=== PATIENT | male | born 1985 | race Caucasian/White ===

== ENCOUNTER 2020-10-05 10:51 | Outpatient (REF) | payer OTHER, SELFPAY | END 2020-10-05 10:52 | disposition home or self-care (01) | LOC: HO.LAB 10:51 | PROVIDERS: PCP Internal Medicine; Visit Provider Internal Medicine | DX: Z20.828 Contact with and (suspected) exposure to other viral communicable diseases (principal) | CPT/HCPCS: C9803; U0003 ==

== ENCOUNTER 2021-03-03 08:42 | Outpatient (REF) | payer OTHER, SELFPAY ==
[2021-03-03 09:16] LABS: COVID-19 Test Negative (Negative)
== END 2021-03-03 08:43 | disposition home or self-care (01) ==
LOC: HO.LAB 08:42
PROVIDERS: Visit Provider Internal Medicine
DX: Z20.822 Contact with and (suspected) exposure to COVID-19 (principal)
CPT/HCPCS: 36415; 87635; C9803

== ENCOUNTER 2021-09-21 14:40 | Inpatient (IN) | payer MEDICAID, SELFPAY ==
[2021-09-21] VITALS (12 sets, daily range): BP systolic 97–116; BP diastolic 65–76; PULSE 52–90; RESP 13–18; TEMP 36.5–36.8; O2SAT 95–98; BMI 26.2
--- NOTE | 2021-09-21 | ECG_ITS ---
Test Reason : SYNCOPE Blood Pressure : / mmHG Vent. Rate : 059 BPM Atrial Rate : 059 BPM P-R Int : 164 ms QRS Dur : 084 ms QT Int : 404 ms P-R-T Axes : 059 016 030 degrees QTc Int : 399 ms Sinus bradycardia Otherwise normal ECG When compared with ECG of 21-SEP-2021 14:48, limb lead reversal has been corrected Referred By: Prem Rudd Electronically Signed By:BHANU BARRON MD
--- NOTE | ~2021-09-21 | CT_ITS ---
EXAMINATION: CT ANGIOGRAM OF THE CHEST WITH CONTRAST (CT PULMONARY ANGIOGRAM FOR PE) CLINICAL INFORMATION: Syncope and leg pain after COVID. COMPARISON: No pertinent prior studies are available for comparison. TECHNIQUE: Prior to contrast administration, noncontrast localization images were obtained. Subsequently, multidetector volumetric imaging was performed from the thoracic inlet to below the diaphragms following the administration of 65 mL Omnipaque 350 intravenous contrast. No contrast reaction reported. Sagittal, coronal, and MIP oblique sagittal reformatted images were obtained on the CT workstation, uploaded to PACS, and reviewed. This CT examination was performed using dose optimization techniques as appropriate, variously including the following: *Automated exposure control *Adjustment of mA and/or kV according to patient size (this includes techniques or standardized protocols for targeted exams where dose is matched to indication/reason for exam; i.e. extremities or head) *Use of iterative reconstruction technique DLP: Total exam dose-length product 326 mGy-cm FINDINGS: LUNGS AND PLEURA: Lungs are well expanded. Calcified and noncalcified bilateral pulmonary nodules are present. Some of the small nodular opacities are ill-defined and have surrounding groundglass attenuation. The largest noncalcified nodules measure up to 0.5 cm. Some of the nodules probably represent mildly enlarged peribronchial lymph nodes. There are some scattered peripheral groundglass pulmonary opacities from minimal atelectasis or pneumonitis. No pleural effusion or pneumothorax. QUALITY OF STUDY/CONTRAST BOLUS: Satisfactory. CARDIOVASCULAR: Pulmonary arteries are normal in caliber. A few emboli are observed within subsegmental branches of the posterior and medial right lower lobe, and within segmental/subsegmental branches of anterior left lower lobe. No evidence of heart strain. No inward bowing of the interventricular septum. The heart size is normal. No pericardial effusion. The thoracic aorta is normal. MEDIASTINUM/LOWER NECK: The esophagus and thyroid gland are unremarkable. LYMPHATICS: No axillary or internal mammary lymphadenopathy. There is bilateral hilar and mediastinal lymphadenopathy. Lymph node measurements are given in short axis dimension. The largest right paratracheal lymph node is 1.1 cm and a subcarinal lymph node is 2.3 cm. A right hilar lymph node is approximately 1.3 cm in short axis dimension (image 198, series 7). UPPER ABDOMEN: No contrast reflux into the inferior vena cava. Adrenal glands are normal. No pathologic sized lymph nodes in the visualized upper abdomen. OSSEOUS STRUCTURES: No acute or suspicious osseous abnormality. CT/CT angio chest PE protocol IMPRESSION: * Bilateral lower lobe pulmonary emboli are present. No evidence of right heart strain. * A few scattered peripheral groundglass opacities are present in both lungs, possibly sequela of viral pneumonia. No pleural effusion. * Bilateral hilar and mediastinal lymphadenopathy is present. Also, there are multiple small, predominantly noncalcified bilateral pulmonary nodules. These findings could be secondary to sarcoidosis, but further workup is needed. The critical test result was discussed with Dr. Rudd at 4:49 pm on 09/21/2021 and it was ascertained that the content and the importance of the findings was understood at the time of the direct communication.
--- NOTE | ~2021-09-21 | CT_ITS ---
EXAMINATION: CT ABDOMEN AND PELVIS WITH CONTRAST CLINICAL INFORMATION: A 36-year-old male found to have bilateral hilar and mediastinal lymphadenopathy on prior CT of the chest done on 09/21/2021 in addition to bilateral lower lobar pulmonary thromboembolism. CT of the abdomen and pelvis is requested to assess for infradiaphragmatic lymphadenopathy. COMPARISON: CTA of the chest done on 09/21/2021. TECHNIQUE: Multidetector volumetric images were obtained from the superior aspect of the liver through the pubic symphysis following administration 85 mL of Omnipaque 350 intravenous contrast. Sagittal and coronal reformatted images were obtained on the technologist's workstation. Oral contrast: No This CT examination was performed using dose optimization techniques as appropriate, variously including the following: *Automated exposure control *Adjustment of mA and/or kV according to patient size (this includes techniques or standardized protocols for targeted exams where dose is matched to indication/reason for exam; i.e. extremities or head) *Use of iterative reconstruction technique DLP: 595.0 mGy-cm FINDINGS: LUNG BASES: A few patchy airspace disease is noted within the lingular segment as well as the left lower lobe and groundglass airspace disease at right lower lobe, similar to prior study done yesterday. The subpleural opacity seen at right lung base may represent evolving pulmonary infarction given the presence of right lower lobar pulmonary arterial thrombi. No evidence of any pleural effusion. LIVER, GALLBLADDER, AND BILIARY TREE: The liver measures 17.5 cm at its maximum craniocaudal extent. No discrete focal liver lesion. No evidence of any intrahepatic biliary ductal dilatation. The portal, hepatic veins are patent. The gallbladder is not distended. The gallbladder lumen shows hyperdensity, new since prior study, likely represent vicarious excretion of contrast from prior CTA done yesterday. PANCREAS: 2 punctate adjacent sub-5 mm calcifications are noted along the anterior surface of the distal part of the body of the pancreas, may represent parenchymal versus vascular calcifications. No evidence of any pancreatic ductal dilatation or peripancreatic fluid collection. SPLEEN: Unremarkable. ADRENAL GLANDS: Unremarkable. KIDNEYS AND URETERS: The kidneys are normal in size, shape, and attenuation. No hydronephrosis, hydroureter, or calculi seen. No perinephric stranding. BLADDER: Unremarkable. GASTROINTESTINAL TRACT: The small and large bowel are unremarkable. The appendix is unremarkable. ABDOMINAL WALL: No significant hernia is appreciated. LYMPH NODES: There are no pathologically enlarged retroperitoneal, mesenteric, pelvic and/or groin lymphadenopathy present. VASCULAR: Unremarkable. PELVIC VISCERA: There is no pelvic mass present. No evidence of any free fluid and/or free air. OSSEOUS STRUCTURES: Mild endplate irregularities are noted at L1 vertebral body, otherwise unremarkable. CT/CT abdomen pelvis w con IMPRESSION: 1. No CT evidence of any pathologically enlarged retroperitoneal, pelvic or mesenteric or groin lymphadenopathy seen. 2. The visualized lung bases appear abnormal showing features suggestive of likely evolving pulmonary infarct at right lung base and nonspecific patchy groundglass airspace disease at lingular segment and left lower lobe of the lung. 3. The liver measures 17.5 cm at its maximum craniocaudal extent without any superimposed focal liver lesion. 4. 2 punctate sub-5 mm adjacent calcifications are noted along the anterior surface of the distal part of the body of the pancreas, may represent parenchymal versus vascular calcifications.
--- NOTE | ~2021-09-21 | US_ITS ---
EXAMINATION: US VENOUS ULTRASOUND WITH DOPPLER LOWER EXTREMITY, LEFT CLINICAL INFORMATION: Pain. Swelling. COMPARISON: None TECHNIQUE: Ultrasound of the deep veins is performed from the hip to the calf with compression sonography and color and pulse Doppler assessment. Spectral analysis with color-flow imaging is performed. FINDINGS: There is normal venous compression and respiratory variation and augmented flow. The visualized common femoral vein, superficial femoral vein, profunda femoral vein, popliteal vein, and the trifurcation region shows no evidence of deep venous thrombosis. There is no significant popliteal fossa cyst. If the patient's symptoms persist, followup ultrasound in 5 days 7 days might be of value to exclude proximal propagation from a non-visualized calf vein. US/US venous duplex LE LT IMPRESSION: No DVT demonstrated in the left lower extremity.
--- NOTE | 2021-09-21 14:42 | ED.SYNCOPE ---
HPI - Syncope General Chief Complaint: General Medical Stated Complaint: Syncope Time Seen by Provider: 09/21/21 14:42 Source: patient Mode of arrival: ambulatory Limitations: no limitations History of Present Illness HPI narrative: Patient recovering from COVID, diagnosed August 20, now has left leg pain and PCP was concerned about a blood clot. While in the car with his mother he passed out and his mother stopped at the ED complaint: loss of consciousness Onset (ago): minute(s) -: second(s) Prodromal symptoms: lightheaded Witnessed: Yes - by Bystander Current symptoms: lightheaded History: previous syncopal episode Related Data Home Medications Medication Instructions Recorded Confirmed sennosides 8.6 mg-docusate sodium 1 tab PO BID PRN 09/21/21 09/21/21 50 mg tablet (Senexon-S) Allergies Allergy/AdvReac Type Severity Reaction Status Date / Time No Known Allergies Allergy Verified 09/21/21 14:46 Review of Systems Constitutional: Constitutional: Reports no additional constitutional complaints Eyes: Eyes: Reports no additional eye complaints ENT: Denies dizziness Cardiovascular: Cardiovascular: Reports no additional cardiovascular complaints Respiratory: Respiratory: Reports as per HPI Gastrointestinal: Gastrointestinal: Reports no additional gastrointestinal complaints Musculoskeletal: Musculoskeletal: Reports no additional musculoskeletal complaints Integumentary/Breasts: Skin/Breast: Denies rash Neurologic: Reports system reviewed and no additional complaints, except as documented, Denies dizziness and Denies Sensory deficit (Neuro) Psychiatric: Psychiatric: Denies anxiety [facility] Past Medical History Medical History (Updated 09/21/21 @ 17:13 by Aaron Blair MD) History of COVID-19 Social History Social History Patient Tobacco Use Status: Never used Tobacco Use of substances other than those prescribed or required for medical reasons: No Advance Directives: No Advance Directives Information Provided: Yes Physical Exam Vital Signs: Vital Signs: Last Vital Signs Temp 98.3 F 09/21/21 15:51 Pulse 87 09/21/21 15:51 Resp 13 09/21/21 15:51 BP 110/73 09/21/21 15:51 Pulse Ox 96 09/21/21 15:51 Body Mass Index 26.2 Const: Other: Pale diaphoretic Nutritional Appearance: average body habitus Orientation/consciousness: oriented to person and patient oriented x3 Limitations: no limitations HENMT: Head: Yes normal to inspection Ears: external ears normal General nose exam: Normal external nose present Mouth: Normal oral and palatal mucosa present and oropharynx normal Throat: Yes posterior oropharynx normal Eyes: General: appearance normal, both eyes and all related structures Neck: Other: supple Neck: Yes normal visual inspection Chest: Chest palpation & inspection: normal inspection of the chest Resp: Auscultation: clear to auscultation bilaterally Cardio: Jugular venous distension: no JVD Rate: regular rate Rhythm: regular rhythm Heart sounds: S1 normal heart sound present and S2 normal heart sound present GI: Inspection: Yes normal to inspection Palpation (GI): Soft to palpation, nontender and No hepatosplenomegaly present Auscultation: normal bowel sounds : General: Yes no CVA tenderness Back/Spine/Pelvis: Back: no CVA tenderness Skin: General skin exam: no rashes or lesions noted Neuro: General: oriented to person and patient oriented x3 Cranial nerves: Yes CN's II-XII intact bilaterally Motor exam (neuro): 5/5 motor strength present throughout Sensory Exam: No Sensory deficit (Neuro) Extrem: Other: left calf tenderness Psych: Appearance: grossly normal Course Reevaluation(s) Reevaluation #1: patient with syncope and multiple PEs will admit Time: 16:55 Reevaluation #2: discussed case with patients mother who is a nurse Time: 17:18 MDM - Syncope Lab Data Result diagrams: 09/21/21 14:57 09/21/21 14:57 Labs: Lab Results 09/21/21 09/21/21 09/21/21 Range/Units 14:57 14:57 14:57 WBC 10.4 (4.8-10.8) X10*3/uL RBC 5.22 (4.60-5.80) X10*6/uL Hgb 16.0 (14.0-18.0) g/dl Hct 45.9 (42.0-52.0) % MCV 87.9 (80.0-98.0) fL MCH 30.7 (27.0-33.0) pg MCHC 34.9 (31.0-36.0) g/dl RDW 11.9 (11.0-16.0) % Plt Count 428 H (160-400) X10*3/uL MPV 9.4 (9.4-12.4) fL Immature Gran % (Auto) 0.4 (0.0-0.4) % Neut % (Auto) 57.4 (45-73) % Lymph % (Auto) 28.6 (20-40) % [place] % (Auto) 12.8 H (2-11) % Eos % (Auto) 0.4 (0-4) % Baso % (Auto) 0.4 (0-2) % Lymph # (Auto) 3.0 (1.2-4.9) X10*3/uL [place] # (Auto) 1.3 H (0.1-1.2) X10*3/uL Eos # (Auto) 0.0 (0.0-0.4) X10*3/uL Baso # (Auto) 0.0 (0.0-0.2) X10*3/uL Abs Immat Gran (auto) 0.04 H (0.00-0.03) X10*3/uL Absolute Neuts (auto) 6.0 (2.0-8.3) x10*3/uL Absolute Nucleated RBC 0.000 (0.0-0.012) X10*3/uL Nucleated RBC % (auto) 0.0 (0.0-0.2) /100WBC Sodium 139 (135-145) mmol/L Potassium 4.7 (3.3-5.1) mmol/L Chloride 104 (96-108) mmol/L Carbon Dioxide 26 (22-29) mmol/L Anion Gap 14 (12-20) BUN 21 H (9-16) mg/dL Creatinine 1.15 (0.5-1.4) mg/dL Estim Creat Clear Calc 92.5 Estimated GFR > 60 Random Glucose 103 (60-115) mg/dL Calcium 9.6 (8.4-10.2) mg/dL Troponin I High Sens < 3.5 (<3.5-35.0) ng/L Imaging Data CT scan - chest: Radiologist's impression: multiple pulmonary emboli, large adenopathy Critical Care Time Critical Care Time Attestation: I spent 40 minutes of critical care, with interventions, assessments, speaking to patient, consultants, and family. Discharge Plan Discharge Clinical Impression: Pulmonary emboli Qualifiers: Pulmonary embolism type: unspecified Chronicity: acute Acute cor pulmonale presence: without acute cor pulmonale Qualified Code(s): I26.99 - Other pulmonary embolism without acute cor pulmonale Patient Disposition: Admitted As Inpatient
--- NOTE | 2021-09-21 14:46 | ECG_ITS ---
Test Reason : SYNCOPE Blood Pressure : / mmHG Vent. Rate : 055 BPM Atrial Rate : 055 BPM P-R Int : 154 ms QRS Dur : 082 ms QT Int : 402 ms P-R-T Axes : 127 163 151 degrees QTc Int : 384 ms Suspect limb lead reversal, interpretation assumes no reversal Unusual P axis, possible ectopic atrial bradycardia Lateral infarct , age undetermined Abnormal ECG No previous ECGs available advised repeat study Referred By: Prem Rudd Electronically Signed By:BHANU BARRON MD
[2021-09-21 15:01] LABS: MANUAL DIFF FLAG NO
[2021-09-21 15:03] LABS: Basophils Percent Auto 0.4 % (0-2); Eosinophils Percent Auto 0.4 % (0-4); Hematocrit 45.9 % (42.0-52.0); Imm Gran Abs Auto 0.04 X10*3/uL (0.00-0.03); Imm Gran Pct Auto 0.4 % (0.0-0.4); Lymphocytes Percent Auto 28.6 % (20-40); Mean Corpuscular HGB Conc 34.9 g/dl (31.0-36.0); Mean Corpuscular Hemoglobin 30.7 pg (27.0-33.0); Mean Corpuscular Volume 87.9 fL (80.0-98.0); Mean Platelet Volume 9.4 fL (9.4-12.4); Monocytes Absolute Auto 1.3 X10*3/uL (0.1-1.2); Monocytes Percent Auto 12.8 % (2-11); Neutrophils Percent Auto 57.4 % (45-73); Platelet Count 428 X10*3/uL (160-400); Red Blood Count 5.22 X10*6/uL (4.60-5.80); Red Cell Distribution Width 11.9 % (11.0-16.0); White Blood Count 10.4 X10*3/uL (4.8-10.8)
[2021-09-21 15:18] LABS: Anion Gap 14 (12-20); Blood Urea Nitrogen 21 mg/dL (9-16); Calcium 9.6 mg/dL (8.4-10.2); Carbon Dioxide 26 mmol/L (22-29); Chloride 104 mmol/L (96-108); Creatinine Clr Calc Pharmacy 92.5; Estimated Glomerular Filt Rate > 60; Glucose Random 103 mg/dL (60-115); Potassium 4.7 mmol/L (3.3-5.1); Sodium 139 mmol/L (135-145)
[2021-09-21 15:24] LABS: Troponin-I High Sensitivity < 3.5 ng/L (<3.5-35.0)
--- NOTE | 2021-09-21 15:26 | PC.NURSE ---
pt resting in the stretcher, alert and oriented, skin slightly pale, respirations even and unlabored, pt reports just getting over covid almost 10 days into, pt reports left calf pain that is why he ws coming in to the ed, his mom was driving and nest thing he remembers is pulling to the ed entrance, believes that he had a syncope episode. pt denies feeling sob/chest pain, sinus on the monitor.
[2021-09-21] MEDS: iohexoL 350 MG/ML 100 ML INFUS..BTL IV (16:32)
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
[2021-09-21] MEDS: Heparin Sodium,Porcine 5,000 UNIT/ML VIAL 6600 UNIT IVPUSH (17:43)
[2021-09-21] MEDS: Heparin Sodium,Porcine/1/2NS 25,000 UNIT/250 ML IV.SOLN 11.62 UNIT IVCONT (17:44)
[2021-09-21 17:46] LABS: INTERNATIONAL NORM RATIO 1.1 (0.9-1.1)
[2021-09-21 17:49] LABS: COVID-19 Test Positive (Negative); PTT Heparin Drip 33.2 SEC (53-77.9)
[2021-09-21 18:00] LABS: Alanine Aminotransferase 75 U/L (0-40); Albumin Level 4.2 g/dL (3.5-5.0); Alkaline Phosphatase 77 U/L (39-117); Aspartate Amino Transferase 29 U/L (5-37); Bilirubin Direct 0.2 mg/dL (0.0-0.5); Bilirubin Total 0.7 mg/dL (0.0-1.0); Lactate Dehydrogenase 275 U/L (118-273); Total Protein 7.9 g/dL (6.5-8.0)
[2021-09-21 18:00] LABS: Hematocrit 46.1 % (42.0-52.0); Hemoglobin 15.8 g/dl (14.0-18.0); Mean Corpuscular HGB Conc 34.3 g/dl (31.0-36.0); Mean Corpuscular Hemoglobin 30.4 pg (27.0-33.0); Mean Corpuscular Volume 88.8 fL (80.0-98.0); Mean Platelet Volume 9.7 fL (9.4-12.4); Platelet Count 391 X10*3/uL (160-400); Red Blood Count 5.19 X10*6/uL (4.60-5.80); Red Cell Distribution Width 11.8 % (11.0-16.0); White Blood Count 15.3 X10*3/uL (4.8-10.8)
[2021-09-21 18:15] LABS: D Dimer 1089 NG/ML
--- NOTE | 2021-09-21 19:17 | PC.NURSE ---
RN assumed care at 1900. Pt alert and oriented x4, calm and cooperative. Pt denies pain, denies SOB, denies chest pain. Pt states pain to left leg only with pressure, denies pain to leg at rest. IV intact infusing Heparin drip at 14units/hr. Vitals stable, remains on room air. Pt mom remains at bedside with patient. Will continue to monitor.
[2021-09-22 00:10] LABS: PTT Heparin Drip 102.7 SEC (53-77.9)
[2021-09-22 03:09] VITALS: BP 108/72; PULSE 60; RESP 15; O2SAT 97
--- NOTE | 2021-09-22 05:29 | PC.NURSE ---
Pt alert and oriented x4, calm and cooperative. Pt denies pain. Denies SOB. Pt slept throughout night without issues. Pt remains room air. Vitals stable. Heparin drip adjusted per protocol, running at 11units/hr at this time. Will continue to monitor.
[2021-09-22 06:47] LABS: INTERNATIONAL NORM RATIO 1.1 (0.9-1.1); Prothrombin Time 12.7 SEC (9.9-13.0)
[2021-09-22 06:51] LABS: Anion Gap 13 (12-20); Blood Urea Nitrogen 19 mg/dL (9-16); Calcium 9.7 mg/dL (8.4-10.2); Carbon Dioxide 28 mmol/L (22-29); Chloride 102 mmol/L (96-108); Creatinine Clr Calc Pharmacy 94.2; Estimated Glomerular Filt Rate > 60; Glucose Random 92 mg/dL (60-115); Hematocrit 46.3 % (42.0-52.0); Hemoglobin 15.7 g/dl (14.0-18.0); Mean Corpuscular HGB Conc 33.9 g/dl (31.0-36.0); Mean Corpuscular Hemoglobin 30.6 pg (27.0-33.0); Mean Corpuscular Volume 90.3 fL (80.0-98.0); Mean Platelet Volume 9.9 fL (9.4-12.4); PTT Heparin Drip 36.6 SEC (53-77.9); Platelet Count 350 X10*3/uL (160-400); Potassium 4.9 mmol/L (3.3-5.1); Red Blood Count 5.13 X10*6/uL (4.60-5.80); Red Cell Distribution Width 11.9 % (11.0-16.0); Sodium 138 mmol/L (135-145); White Blood Count 9.2 X10*3/uL (4.8-10.8)
[2021-09-22] MEDS: Heparin Sodium,Porcine 5,000 UNIT/ML VIAL 6600 UNIT IVPUSH (07:07)
[2021-09-22 07:10] VITALS: BP 103/68; PULSE 86; RESP 14; TEMP 36.9; O2SAT 96
--- NOTE | 2021-09-22 09:22 | MHC.CM.PN ---
Attempted to meet with patient in regards to discharge planning. Provider currently with patient. Will attempt to meet again. Continue to monitor for d/c needs.
--- NOTE | 2021-09-22 10:00 | P.CONPL_ITS ---
History of Present Illness History of Present Illness Consult date: 09/22/21 Chief complaint: Syncope ,PE Narrative: [address] [address] Internal Med History&Physical Signed Patient: Luis M Kiser MR#: [id number] : 1985 Acct:[id number] Age/Sex: 36 / M Loc: [facility] ?? ? This is a in patient pulmonary consultation. The patient is a 36 year-old man with recurrent vasovagal syncopal episodes and recent admission to [facility] for COVID-19 pneumonia 0n 09/05/21 s/p Kemal, who developed painful swelling of the upper part of his left calf about a day ago.? His mother was driving him to the hospital for evaluation when he became profusely sweaty, lightheaded, and dizzy and passed out.? She estimates that he was unconscious for 3-4 minutes.? He regained consciousness and she brought him to the [facility] ED.? In the ED, CT showed bilateral lower lobe pulmonary emboli without signs of righ t heart strain.? There was residual peripheral groundglass opacification in both lungs.? There was also bilateral hilar and mediastinal lymphadenopathy along with noncalcified bilateral pulmonary nodules.? The patient developed symptoms of COVID-19 infection with fever and malaise on 09/02/21 and tested positive on 09/05.? He presented to the [facility] ED on 09/09 with worsening dyspnea and had an episode of syncope during evaluation.? He was found to have elevated creatinine of 1.5 with unknown baseline.? He was not hypoxic.? He was treated with monoclonal antibody cocktail, though I am unclear on the indication.? He was not given steroids or remdesivir.? Inflammatory markers improved and he was discharged on 09/13.? Creatinine normalized.? Notably a CT angio of the chest 09/09/21 did not demonstrate any pulmonary embolism.? He did have left supraclavicular, mediastinal, and bilateral perihilar adenopathy thought atypical for COVID pneumonitis.? Review of Systems Constitutional: Constitutional: Denies body ache(s), Denies chills, Denies fatigue, Denies fever(s), Denies headache(s), Denies malaise and Denies night sweats ENT: Denies change in voice, Denies headache(s), Denies lip swelling, Denies mouth pain and Denies tongue swelling Cardiovascular: Cardiovascular: Denies chest pain, Reports syncope and Reports dyspnea on exertion Respiratory: Respiratory: Denies cough and Reports dyspnea on exertion Gastrointestinal: Gastrointestinal: Denies abdominal pain Musculoskeletal: Musculoskeletal: Denies no additional musculoskeletal comp laints Neurologic: Reports syncope and Denies headache(s) Psychiatric: Psychiatric: Denies no additional psychiatric complaints Endocrine: Endocrine: Denies fatigue Hematologic/Lymphatic: Hematologic/Lymphatic: Denies easy bleeding and Denies lymphadenopathy Allergic/Immunologic: Allergic/Immunologic: Denies lip swelling and Denies tongue swelling PMFSH Past Medical History Medical History (Updated 09/22/21 @ 10:07 by Ever Pearson MD) History of COVID-19 Vasovagal episode Functional capacity: independent ambulation Surgical History Surgical History (Updated 09/21/21 @ 17:41 by Aaron Blair MD) H/O hernia repair Social History Social History Patient Tobacco Use Status: Never used Tobacco Use of substances other than those prescribed or required for medical reasons: No Advance Directives: No Advance Directives Information Provided: Yes Meds Allergies Allergy/AdvReac Type Severity Reaction Status Date / Time No Known Allergies Allergy Verified 09/21/21 14:46 Active Medications: Current Medications Acetaminophen (Acetaminophen 325 Mg Tablet) 650 mg PO Q6H PRN PRN Reason: Pain, Mild (Pain Scale 1-3) Heparin Sodium (Porcine) (Heparin Sodium,Porcine 5,000 Unit/Ml Vial) 3,300 unit 40 unit/kg (3300 unit) IVPUSH PROTOCOL BOLUS PRN; Protocol PRN Reason: 40 unit/kg - Heparin Protocol Heparin Sodium (Porcine) (Heparin Sodium,Porcine 5,000 Unit/Ml Vial) 6,600 unit 80 unit/kg (6600 unit) IVPUSH PROTOCOL BOLUS PRN; Protocol PRN Reason: 80 unit/kg - Heparin Protocol Last Admin: 09/22/21 07:07 Dose: 6,600 unit Documented by: Heparin Sodium/Sodium Chloride () 25,000 unit in 250 mls @ 0 mls/hr IVCONT .Q0M SARAH; Protocol Last Titration: 09/22/21 07:08 Dose: 15 units/kg/hr, 12.45 mls/hr Documented by: Ondansetron HCl (Ondansetron Hcl 4 Mg/2 Ml Vial) 4 mg IVPUSH Q8H PRN PRN Reason: Nausea and Vomiting Pharmacy Consult (Consult Rx Perform Med Rec) 1 each MISCELLANE ONCE PRN PRN Reason: Consult order Sodium Chloride (0.9 % Sodium Chloride Flush 3 Ml Syringe) 3 ml IVFLUSH QSHIFT [facility] Last Admin: 09/22/21 07:10 Dose: Not Given Documented by: Home Medications Medication Instructions Recorded Confirmed Last Taken Type No Known Home Meds 09/21/21 09/21/21 Unknown History Physical Exam Vital Signs: Vital Signs: Last Vital Signs Temp 98.4 F 09/22/21 07:10 Pulse 86 09/22/21 07:10 Resp 14 09/22/21 07:10 BP 103/68 09/22/21 07:10 Pulse Ox 96 09/22/21 07:10 Body Mass Index 26.2 Const: General: alert Neck: Neck: Yes normal visual inspection, Yes full ROM and Yes no lymphad enopathy Chest: Chest palpation & inspection: normal inspection of the chest Resp: Auscultation: diminished lung sounds Cardio: Rate: regular rate Rhythm: regular rhythm Heart sounds: S1 normal heart sound present and S2 normal heart sound present GI: Palpation (GI): Soft to palpation and nontender Auscultation: normal bowel sounds Skin: General skin exam: rashes and/or lesions noted Extrem: Left lower extremity: edema and lower leg Details: tenderness, localized swelling and palpable cord Results Laboratory Findings CBC and BMP: 09/22/21 06:20 09/22/21 06:20 ABG, PT/INR, D-dimer: PT/INR, D-dimer PT 12.7 SEC (9.9-13.0) 09/22/21 06:20 INR 1.1 (0.9-1.1) 09/22/21 06:20 D-Dimer 1089 NG/ML 09/21/21 17:36 Abnormal lab findings: Abnormal Labs 09/21/21 09/21/21 09/21/21 14:57 14:57 17:36 WBC Plt Count 428 H [place] % (Auto) 12.8 H [place] # (Auto) 1.3 H Abs Immat Gran (auto) 0.04 H PTT (Heparin Protocol) 33.2 L BUN 21 H ALT 75 H Lactate Dehydrogenase 275 H COVID-19 (MARY) 09/21/21 09/21/21 09/21/21 17:36 17:53 23:54 WBC 15.3 H Plt Count [place] % (Auto) [place] # (Auto) Abs Immat Gran (auto) PTT (Heparin Protocol) 102.7 H D BUN ALT Lactate Dehydrogenase COVID-19 (MARY) Positive A 09/22/21 09/22/21 06:20 06:20 WBC Plt Count [place] % (Auto) [place] # (Auto) Abs Immat Gran (auto) PTT (Heparin Protocol) 36.6 L D BUN 19 H ALT Lactate Dehydrogenase COVID-19 (MARY) Assessment and Plan (1) Mediastinal adenopathy: Status: Acute (2) Syncope: Status: Acute (3) Pulmonary emboli: Qualifiers: Acute cor pulmonale presence: without acute cor pulmonale Chronicity: acute Pulmonary embolism type: unspecified Qualified Code(s): I26.99 - Other pulmonary embolism without acute cor pulmonale Status: Acute (4) History of COVID-19: Status: Acute OK to swirch to Eliquis if ECHO is reassuring Would recommend treatment for 3-6 months Would recommend ECHO, if any evidence of RV strain could consider IVC filter Awaiting bloodwork for LN Would recommend repeating CTA and dopplers in 6-8 weeks with outpt f/u Procedures Date of Service Date of Service: 09/22/21
[2021-09-22 10:18] LABS: Monotest Negative (Negative)
[2021-09-22] MEDS: iohexoL 350 MG/ML 100 ML INFUS..BTL IV (10:22)
--- NOTE | 2021-09-22 11:27 | P.CNHO_ITS ---
Subjective - Subjective Chief complaint: Leg pain Patient: new to practice Consult date: 09/22/21 Requesting Physician: Dr. Blair Primary Care Provider: Natty Islas MD HPI - Consult Narrative Reason for consult: Bilateral pulmonary emboli, mediastinal adenopathy Narrative: Luis M Kiser is a 36 year old male for bilateral pulmonary emboli. He had a syncopal episode, probable vasovagal which prompted him coming to the emergency department. At this time he denies any chest pain or shortness of breath. He was admitted to [facility] for COVID-19 pneumonia, he tested positive on 09/05/2021. He was treated with steroids and remdesivir. He had a CT angiogram on 09/09/21 which was negative for pulmonary embolism but he did have left supraclavicular, mediastinal and bilateral hilar adenopathy which was thought to be not typical for COVID-19 infection. His main complaint is tenderness of the left leg. Left leg Doppler was negative for DVT. He appears to have had multiple episodes of syncopal episodes in the past. He denied any family history of thromboembolism. Review of Systems - Constitutional Reports as per HPI, Reports no additional constitutional complaints - Neurologic Reports no additional neurologic complaints, Denies dizziness, Reports syncope, Denies headache(s), Denies sensory deficit REPLACED BY [facility] Medical History: Medical History (Last Updated 09/22/21 @ 10:07 by Ever Pearson MD) History of COVID-19 Vasovagal episode Functional capacity: independent ambulation Surgical History: Surgical History (Last Updated 09/21/21 @ 17:41 by Aaron Blair MD) H/O hernia repair Social History: Social History (Last Reviewed 09/21/21 @ 14:46 by Prem Rudd MD) Alcohol History Details: Alcohol intake frequency: does not drink Tobacco History: Patient Tobacco Use Status: Never used Tobacco Substance Use History: Use of substances other than those prescribed or required for medical reasons : No Advance Directives: Advance Directives: No Advance Directives Information Provided: Yes Home Medications and Allergies Current Medications: Current Medications Acetaminophen (Acetaminophen 325 Mg Tablet) 650 mg PO Q6H PRN PRN Reason: Pain, Mild (Pain Scale 1-3) Heparin Sodium (Porcine) (Heparin Sodium,Porcine 5,000 Unit/Ml Vial) 3,300 unit 40 unit/kg (3300 unit) IVPUSH PROTOCOL BOLUS PRN; Protocol PRN Reason: 40 unit/kg - Heparin Protocol Heparin Sodium (Porcine) (Heparin Sodium,Porcine 5,000 Unit/Ml Vial) 6,600 unit 80 unit/kg (6600 unit) IVPUSH PROTOCOL BOLUS PRN; Protocol PRN Reason: 80 unit/kg - Heparin Protocol Last Admin: 09/22/21 07:07 Dose: 6,600 unit Documented by: Heparin Sodium/Sodium Chloride () 25,000 unit in 250 mls @ 0 mls/hr IVCONT .Q0M [facility]; Protocol Last Titration: 09/22/21 07:08 Dose: 15 units/kg/hr, 12.45 mls/hr Documented by: Ondansetron HCl (Ondansetron Hcl 4 Mg/2 Ml Vial) 4 mg IVPUSH Q8H PRN PRN Reason: Nausea and Vomiting Pharmacy Consult (Consult Rx Perform Med Rec) 1 each MISCELLANE ONCE PRN PRN Reason: Consult order Sodium Chloride (0.9 % Sodium Chloride Flush 3 Ml Syringe) [facility] Last Admin: 09/22/21 07:10 Dose: Not Given Documented by: Home Medications Medication Instructions Recorded Confirmed Type No Known Home Meds 09/21/21 09/21/21 History Allergies Allergy/AdvReac Type Severity Reaction Status Date / Time No Known Allergies Allergy Verified 09/21/21 14:46 Physical Exam Vital signs: Vital Signs Temp 98.4 F 09/22/21 07:10 Pulse 86 09/22/21 07:10 Resp 14 09/22/21 07:10 BP 103/68 09/22/21 07:10 Pulse Ox 96 09/22/21 07:10 Intake & Output 09/21/21 09/22/21 09/22/21 18:59 06:59 18:59 Intake Total 240 / 240 155.708 / 155.708 Balance 240 / 240 155.708 / 155.708 Intake: Intake, Oral Amount 240 / 240 Intake, IV Amount 155.708 / 155.708 Heparin Sodium,Porcine/1/2NS 25 155.708 / 155.708 ,000 unit In 250 ml @ Per Protocol IVCONT .Q0M [facility] Rx#: [id number] Other: Dinner % Eaten 75% Number of Unmeasured Voids 1 Urine Urinal Urine Color Yellow Weight 83.007 kg Weight 83.007 kg - Constitutional Present: no acute distress - Routine HEENT Exam Head: Present: normal inspection Eye: Present: normal appearance - Routine Neck Exam Absent: swelling - Routine Respiratory Exam Absent: respiratory distress - Routine Cardiovascular Exam Cardiovascular: Present: S1, S2 - Routine Extremities Exam Present: normal inspection, pulses intact. Absent: pedal edema Hem/Onc Consult Result - Labs CBC & Chem 7: 09/22/21 06:20 09/22/21 06:20 Labs: Short CBC 09/21/21 09/21/21 09/22/21 Range/Units 14:57 17:53 06:20 WBC 10.4 15.3 H 9.2 (4.8-10.8) X10*3/uL Hgb 16.0 15.8 15.7 (14.0-18.0) g/dl Hct 45.9 46.1 46.3 (42.0-52.0) % Plt Count 428 H 391 350 (160-400) X10*3/uL BMP 09/21/21 09/22/21 14:57 06:20 Sodium 139 138 Potassium 4.7 4.9 Chloride 104 102 Carbon Dioxide 26 28 BUN 21 H 19 H Creatinine 1.15 1.13 Calcium 9.6 9.7 Liver Function 09/21/21 Range/Units 14:57 Total Bilirubin 0.7 (0.0-1.0) mg/dL Direct Bilirubin 0.2 (0.0-0.5) mg/dL AST 29 (5-37) U/L ALT 75 H (0-40) U/L Alkaline Phosphatase 77 (39-117) U/L Albumin 4.2 (3.5-5.0) g/dL Assessment and Plan Patient Active problem list reviewed?: Yes (1) Pulmonary emboli Status: Acute Assessment and plan: 1. This is a 36-year-old male who has developed bilateral lower lobe pulmonary emboli after recent COVID-19 infection in August 2021. Clot burden is not very high and there is no evidence of right heart strain on CT imaging. Pulmonary emboli is probably result of recent COVID-19 infection. Agree with anticoagulation, he can be switched to oral anticoagulant which he should continue for 3-6 months. No role of thrombophilia testing at this time. 2. Bilateral hilar/mediastinal lymphadenopathy. Infectious, inflammatory versus or autoimmune such as sarcoidosis. Workup in progress. He is not a smoker, he has ground-glass opacities in the lungs, sequelae of recent pneumonia. Lymphoma is also possibility. Await report of imaging of abdomen and pelvis. If negative, repeat imaging study and pulmonary follow-up for biopsy. I thank you for this referral. - Time Spent With Patient Time Spent with Patient (in minutes): 20
[2021-09-22 11:28] LABS: PTT Heparin Drip > 200.0 SEC (53-77.9)
--- NOTE | 2021-09-22 11:48 | PC.NURSE ---
Lab lizeth aptt at wrong time. hospitalist made aware. States to continue heparin gtt at rate and redraw aptt at time originally scheduled.
[2021-09-22 12:26] VITALS: BP 108/68; PULSE 62; RESP 18; TEMP 36.1; O2SAT 98
[2021-09-22 13:44] LABS: PTT Heparin Drip 176.8 SEC (53-77.9)
--- NOTE | 2021-09-22 15:03 | P.PNIM_ITS ---
Subjective Subjective Date of Service: 09/22/21 Interval History: No lightheadedness Minimal dyspnea No fever/chills Review of Systems Review of Systems: Yes all other systems are reviewed and are negative Physical Exam Vital Signs: Vital Signs: Last Vital Signs Temp 97 F 09/22/21 12:26 Pulse 62 09/22/21 12:26 Resp 18 09/22/21 12:26 BP 108/68 09/22/21 12:26 Pulse Ox 98 09/22/21 12:26 Body Mass Index 26.2 Gen: in no acute distress HEENT: sclera anicteric, moist mucus membranes Neck: supple, no LAD Lungs: clear to auscultation bilaterally Heart: regular rate and rhythm, no murmurs Abd: soft, non-tender, non-distended Ext: no edema Skin: warm/well-perfused Neuro: alert and oriented x3, no focal findings Psych: appropriate affect Objective Data Active Medications Acetaminophen (Acetaminophen 325 Mg Tablet) 650 mg PO Q6H PRN PRN Reason: Pain, Mild (Pain Scale 1-3) Apixaban (Apixaban 5 Mg Tablet) 10 mg PO BID [facility] Stop: 09/29/21 09:01 Ondansetron HCl (Ondansetron Hcl 4 Mg/2 Ml Vial) 4 mg IVPUSH Q8H PRN PRN Reason: Nausea and Vomiting Pharmacy Consult (Consult Rx Perform Med Rec) 1 each MISCELLANE ONCE PRN PRN Reason: Consult order Sodium Chloride (0.9 % Sodium Chloride Flush 3 Ml Syringe) 3 ml IVFLUSH QSHIFT [facility] Last Admin: 09/22/21 07:10 Dose: Not Given Documented by: JOIE Non-Admin Reason: IV Running Labs CBC & Chem 7: 09/22/21 06:20 09/22/21 06:20 Labs: Laboratory Results - last 24 hr 09/21/21 09/21/21 09/21/21 14:57 14:57 14:57 MCV 87.9 MCH 30.7 MCHC 34.9 RDW 11.9 Plt Count 428 H MPV 9.4 Immature Gran % (Auto) 0.4 Neut % (Auto) 57.4 Lymph % (Auto) 28.6 [place] % (Auto) 12.8 H Eos % (Auto) 0.4 Baso % (Auto) 0.4 Lymph # (Auto) 3.0 [place] # (Auto) 1.3 H Eos # (Auto) 0.0 Baso # (Auto) 0.0 Abs Immat Gran (auto) 0.04 H Absolute Neuts (auto) 6.0 Absolute Nucleated RBC 0.000 Nucleated RBC % (auto) 0.0 PT INR PTT (Heparin Protocol) D-Dimer Anion Gap 14 Estim Creat Clear Calc 92.5 Estimated GFR > 60 Random Glucose 103 Calcium 9.6 Total Bilirubin 0.7 Direct Bilirubin 0.2 AST 29 ALT 75 H Alkaline Phosphatase 77 Lactate Dehydrogenase 275 H Troponin I High Sens < 3.5 Total Protein 7.9 Albumin 4.2 COVID-19 (MARY) COVID-19 Clin Com Monoscreen 09/21/21 09/21/21 09/21/21 17:36 17:36 17:53 MCV 88.8 MCH 30.4 MCHC 34.3 RDW 11.8 Plt Count 391 MPV 9.7 Immature Gran % (Auto) Neut % (Auto) Lymph % (Auto) [place] % (Auto) Eos % (Auto) Baso % (Auto) Lymph # (Auto) [place] # (Auto) Eos # (Auto) Baso # (Auto) Abs Immat Gran (auto) Absolute Neuts (auto) Absolute Nucleated RBC 0.000 Nucleated RBC % (auto) 0.0 PT 12.0 INR 1.1 PTT (Heparin Protocol) 33.2 L D-Dimer 1089 Anion Gap Estim Creat Clear Calc Estimated GFR Random Glucose Calcium Total Bilirubin Direct Bilirubin AST ALT Alkaline Phosphatase Lactate Dehydrogenase Troponin I High Sens Total Protein Albumin COVID-19 (MARY) Positive A COVID-19 Clin Com See Note Monoscreen 09/21/21 09/22/21 09/22/21 23:54 06:20 06:20 MCV 90.3 MCH 30.6 MCHC 33.9 RDW 11.9 Plt Count 350 MPV 9.9 Immature Gran % (Auto) Neut % (Auto) Lymph % (Auto) [place] % (Auto) Eos % (Auto) Baso % (Auto) Lymph # (Auto) [place] # (Auto) Eos # (Auto) Baso # (Auto) Abs Immat Gran (auto) Absolute Neuts (auto) Absolute Nucleated RBC 0.000 Nucleated RBC % (auto) 0.0 PT INR PTT (Heparin Protocol) 102.7 H D D-Dimer Anion Gap Estim Creat Clear Calc Estimated GFR Random Glucose Calcium Total Bilirubin Direct Bilirubin AST ALT Alkaline Phosphatase Lactate Dehydrogenase Troponin I High Sens Total Protein Albumin COVID-19 (MARY) COVID-19 Clin Com Monoscreen Negative 09/22/21 09/22/21 09/22/21 06:20 06:20 10:35 MCV MCH MCHC RDW Plt Count MPV Immature Gran % (Auto) Neut % (Auto) Lymph % (Auto) [place] % (Auto) Eos % (Auto) Baso % (Auto) Lymph # (Auto) [place] # (Auto) Eos # (Auto) Baso # (Auto) Abs Immat Gran (auto) Absolute Neuts (auto) Absolute Nucleated RBC Nucleated RBC % (auto) PT 12.7 INR 1.1 PTT (Heparin Protocol) 36.6 L D > 200.0 H* D D-Dimer Anion Gap 13 Estim Creat Clear Calc 94.2 Estimated GFR > 60 Random Glucose 92 Calcium 9.7 Total Bilirubin Direct Bilirubin AST ALT Alkaline Phosphatase Lactate Dehydrogenase Troponin I High Sens Total Protein Albumin COVID-19 (MARY) COVID-19 Clin Com Monoscreen 09/22/21 13:10 MCV MCH MCHC RDW Plt Count MPV Immature Gran % (Auto) Neut % (Auto) Lymph % (Auto) [place] % (Auto) Eos % (Auto) Baso % (Auto) Lymph # (Auto) [place] # (Auto) Eos # (Auto) Baso # (Auto) Abs Immat Gran (auto) Absolute Neuts (auto) Absolute Nucleated RBC Nucleated RBC % (auto) PT INR PTT (Heparin Protocol) 176.8 H* D-Dimer Anion Gap Estim Creat Clear Calc Estimated GFR Random Glucose Calcium Total Bilirubin Direct Bilirubin AST ALT Alkaline Phosphatase Lactate Dehydrogenase Troponin I High Sens Total Protein Albumin COVID-19 (MARY) COVID-19 Clin Com Monoscreen Impressions Chest CTA 09/21/21 14:46 IMPRESSION: * Bilateral lower lobe pulmonary emboli are present. No evidence of right heart strain. * A few scattered peripheral groundglass opacities are present in both lungs, possibly sequela of viral pneumonia. No pleural effusion. * Bilateral hilar and mediastinal lymphadenopathy is present. Also, there are multiple small, predominantly noncalcified bilateral pulmonary nodules. These findings could be secondary to sarcoidosis, but further workup is needed. The critical test result was discussed with Dr. Rudd at 4:49 pm on 09/21/2021 and it was ascertained that the content and the importance of the findings was understood at the time of the direct communication. Venous Duplex 09/21/21 14:48 IMPRESSION: No DVT demonstrated in the left lower extremity. Abdomen/Pelvis CT 09/22/21 10:20 IMPRESSION: 1. No CT evidence of any pathologically enlarged retroperitoneal, pelvic or mesenteric or groin lymphadenopathy seen. 2. The visualized lung bases appear abnormal showing features suggestive of likely evolving pulmonary infarct at right lung base and nonspecific patchy groundglass airspace disease at lingular segment and left lower lobe of the lung. 3. The liver measures 17.5 cm at its maximum craniocaudal extent without any superimposed focal liver lesion. 4. 2 punctate sub-5 mm adjacent calcifications are noted along the anterior surface of the distal part of the body of the pancreas, may represent parenchymal versus vascular calcifications. Assessment and Plan (1) Pulmonary emboli: Status: Acute (2) Syncope: Status: Acute (3) Mediastinal adenopathy: Status: Acute (4) History of COVID-19: Status: Acute Assessment and Plan: hospital d#2 36 year-old man with recurrent vasovagal syncope and recent hospitalization for COVID-19 pneumonia without hypoxia presenting with left leg pain and swelling.? He had a prolonged syncopal episode and is found to have multiple bilateral pulmonary emboli.? There is mediastinal and perihilar adenopathy that is atypical for COVID-19 pneumonitis. # PE - transition to apixaban 10 mg bid x7d then 5 mg bid - likely due to COVID-19; no thrombophilia testing indicated - TTE to r/o R heart strain # adenopathy - no intra-abdominal adenopathy - somewhat atypical for COVID-19 - f/u with Pulm in 6-[address] scan and if has not resolved, will need biopsy - Monospot negative - pending: HIV, TB-IGRA, EBV titers, LB level, flow cytometry # vasovagal syncope - recurrent, has had episodes since his teenaged years # dispo - possibly home tomorrow Quality Stroke Does the patient have a stroke diagnosis?: No VTE Prior VTE?: No VTE Risk Level:: Medical - moderate - high VTE Device Contraindication: Treatment Not Indicated VTE Drug Contraindication: N/A - Med Ordered
[2021-09-22 16:00] VITALS: BP 127/82; PULSE 75; RESP 20; TEMP 36.6; O2SAT 97
[2021-09-22 17:36] VITALS: BMI 26.2
[2021-09-22 19:06] VITALS: BP 119/74; PULSE 78; RESP 20; TEMP 36.7; O2SAT 96
[2021-09-22] MEDS: Apixaban 5 MG TABLET 10 MG PO (22:39)
[2021-09-22 23:19] VITALS: BP 126/77; PULSE 102; RESP 20; TEMP 36.9; O2SAT 94
[2021-09-23] MEDS: 0.9 % Sodium Chloride Flush 3 ML SYRINGE IVFLUSH ×2 (01:57→08:45)
[2021-09-23] MEDS: Acetaminophen 325 MG TABLET 650 MG PO (03:13)
[2021-09-23 03:15] VITALS: BP 123/73; PULSE 88; RESP 20; TEMP 37.2; O2SAT 95
[2021-09-23 07:46] LABS: SARS COV2 IgG Positive (Negative)
[2021-09-23 07:56] LABS: HIV AB/AG Nonreactive (Nonreactive); HIV Num 1 0.06 S/CO (0.00-0.99)
[2021-09-23 08:00] VITALS: BP 124/78; PULSE 69; RESP 18; TEMP 37.1; O2SAT 98
[2021-09-23] MEDS: Apixaban 5 MG TABLET 10 MG PO (08:45)
--- NOTE | 2021-09-23 09:51 | PM.PNPUL ---
Subjective Subjective Date of Service: 09/23/21 Interval history: The patient was seen on exam. Overall he is feeling well. Still some heaviness in the chest therapy. Also complaining of left lower extremity pain where he has no blood clot on US. Patient still waiting for his echocardiogram. He was switched over to Eliquis 10 mg twice a day which will complete for total 1 week and then decrease to 5 mg twice a day. I did review his Doppler study again no evidence of any clots. Although he does have significant discomfort in that area still. Would be a reasonable just to repeat the ultrasound to see if there is any migration of clot. Objective Data Labs CBC & Chem 7: 09/22/21 06:20 09/22/21 06:20 Labs: Laboratory Results - last 24 hr 09/21/21 09/22/21 09/22/21 18:20 06:20 10:35 PTT (Heparin Protocol) > 200.0 H* D Monoscreen Negative HIV 1&2 Ab/P24 Ag 4thGn Nonreactive SARS-CoV-2 IgG Ab 09/22/21 09/22/21 10:35 13:10 PTT (Heparin Protocol) 176.8 H* Monoscreen HIV 1&2 Ab/P24 Ag 4thGn SARS-CoV-2 IgG Ab Positive Review of Systems Constitutional: Denies body ache(s), Denies chills, Denies fatigue, Denies fever(s), Denies headache(s), Denies malaise and Denies night sweats Denies change in voice, Denies headache(s), Denies lip swelling, Denies mouth pain and Denies tongue swelling Cardiovascular: Denies chest pain, Reports syncope and Reports dyspnea on exertion Respiratory: Denies cough and Reports dyspnea on exertion Gastrointestinal: Denies abdominal pain Musculoskeletal: Reports as per HPI, Reports abnormal gait and Reports muscle cramps Reports abnormal gait, Reports syncope and Denies headache(s) Psychiatric: Denies no additional psychiatric complaints Endocrine: Denies fatigue Hematologic/Lymphatic: Denies easy bleeding and Denies lymphadenopathy Allergic/Immunologic: Denies lip swelling and Denies tongue swelling Physical Exam Vital Signs: Vital Signs: Last Vital Signs Temp 98.7 F 09/23/21 08:00 Pulse 69 09/23/21 08:00 Resp 18 09/23/21 08:00 BP 124/78 09/23/21 08:00 Pulse Ox 98 09/23/21 08:00 Body Mass Index 26.2 Const: General: alert Neck: Neck: Yes normal visual inspection, Yes full ROM and Yes no lymphadenopathy Chest: Chest palpation & inspection: normal inspection of the chest Resp: Auscultation: diminished lung sounds Cardio: Rate: regular rate Rhythm: regular rhythm Heart sounds: S1 normal heart sound present and S2 normal heart sound present GI: Palpation (GI): Soft to palpation and nontender Auscultation: normal bowel sounds Procedures Date of Service Date of Service: 09/23/21 Assessment and Plan Assessment and plan (1) History of COVID-19: Status: Acute (2) Mediastinal adenopathy: Status: Acute (3) Syncope: Status: Acute (4) Pulmonary emboli: Status: Acute Assessment and Plan: Continue Eliquis 10 mg by mouth twice a day for 7 days then 5 mg by mouth twice a day for total 3-6 months. Plan to repeat CTA in 6-8 weeks to address the pulmonary blood clot in addition to the lymphadenopathy. Awaiting sent up blood work Reasonable to repeat the ultrasound at an earlier date of the lower extremity if he continues to have discomfort with the 1st ultrasound did not demonstrate any DVTs. 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 Will set up outpatient follow-up with Pulmonary and 2 weeks Time Spent With Patient Time: Total time spent is greater than 50% in coordination of care (as documented) at patient's floor/unit and/or counseling patient: Time with patient: 15 - 24 minutes Progress Note: Quality Stroke Does the patient have a stroke diagnosis?: No
--- NOTE | 2021-09-23 10:40 | CA_ITS ---
Transthoracic Echocardiogram Patient (Last, First, Middle): Luis M Kiser R Gender: Male Date of : 1985 Age: 36 Procedure Date: 09/23/2021 Procedure Type: Transthoracic Echocardiogram [place] [facility] [place]: 177.8 cm Weight: 84.37 kg BSA: 2.02 m2 Heart Rate: bpm BP: 116 / 72 mmHg Marker Delivery: LEONA Referring MD: Ever Pearson MD Symptoms: pulmonary emboli, syncope Study Quality: Good ECG Rhythm: Sinus Conclusions: - The left ventricular systolic function is normal. The calculated ejection fraction is 65% by biplane method. - Normal right ventricular cavity size and systolic function. - Top normal pulmonary artery systolic pressure. - No obvious valvular pathology seen on this study. Findings Left Ventricle Normal left ventricular cavity size. There is normal left ventricular wall thickness. The left ventricular systolic function is normal. The calculated ejection fraction is 65% by biplane method. There is no evidence of regional wall motion abnormalities. Diastolic function is normal for age. Right Ventricle Normal right ventricular cavity size and systolic function. Atria Both atria are normal in size. Aortic Valve There is a normal trileaflet aortic valve. There is no aortic valve stenosis. There is no aortic valve regurgitation. Mitral Valve The mitral valve appears normal. There is trace mitral valve regurgitation. There is no mitral valve stenosis. Pulmonic Valve The pulmonic valve was not well visualized. Tricuspid Valve Normal tricuspid valve structure. There is trace tricuspid valve regurgitation. The right ventricular systolic pressure is 35 mmHg. Top normal pulmonary artery systolic pressure. Great Vessels The aortic annulus, sinuses of valsalva, and asc aorta are normal in size. Venous The inferior vena cava was not well visualized. The inferior vena cava is normal in size. Pericardium/Pleural There is no evidence of pericardial effusion. Prior Study Comparison No prior study available for comparison. Recommendations, Care & Conclusions No obvious valvular pathology seen on this study. Measurements 2D Linear Measurements IVSd: 0.85 0.6-0.9/0.6-1.0 cm LVIDd: 4.95 3.9-5.3/4.2-5.9 cm LVIDd Index: 2.45 2.4-3.2/2.2-3.1 cm/m2 LVIDs: 3.35 2.0-3.6 cm LVPWd: 0.92 0.7-1.1 cm Ao Root: 3.50 2.1-3.5 cm LA Diam: 3.20 2.7-3.8/3.0-4.0 cm LAIDs Index: 1.58 1.5-2.3 cm/m2 LV Mass: 189.32 67-162/88-224 g LV Mass Index: 93.72 43-95/49-115 g/m2 LVOT Diam: 2.20 3.0+(-)1.3 cm 2D Systolic Function EF 4C: 63.90 >55% EF 2C: 63.90 >55% EF BiP: 64.50 >55% Mitral Valve MV Pk E: 0.69 MV PK A: 0.40 MV Decel Time: 340.00 E/A: 1.70 E'Lateral: 13.80 E'Medial: 8.70 E/E' Med: 7.90 E/E' Lat: 5.00 PHT: 100.00 MVA PHT: 2.20 Decel [place]: 2.02 Aortic Valve AoV Pk Emiliano: 1.18 AoV Mn Emiliano: 0.85 AoV VTI: 0.22 AoV Pk Grad: 6.00 Aov Mn Grad: 3.00 SIMI Cont.VTI: 3.52 LVOT LVOT Pk Emiliano: 1.13 LVOT Mn Emiliano: 0.73 LVOT VTI: 0.20 LVOT Pk Grad: 5.00 LVOT Mn Grad: 3.00 LVOT Diam: 2.20 LVOT Area: 3.80 Diastolic Function MV Pk E: 0.69 MV Pk A: 0.40 E/A: 1.70 E'Medial: 8.70 E/E' Med: 7.90 E' Laterial: 13.80 E/E' Lat: 5.00 Right Ventricle TAPSE (mm): 1.92 TVS' Emiliano: 10.60 Tricuspid Valve TR Pk Emiliano: 2.82 TR Pk Grad: 32.00 RA Press: 3.00 RVSP: 35.00 Great Vessels Aorta Ao Root-2D: 3.50 2.0-3.7 cm Ao Asc: 2.70 2.1-3.4 cm Ao Arch: 1.90 Updated in Other Vendor System with Status of Final Elpidio Ravi MD electronically signed on 09/23/2021 12:55:07 PM with status of Final
[2021-09-23 11:55] VITALS: BP 116/72; PULSE 77; RESP 20; TEMP 36.4; O2SAT 96
--- NOTE | 2021-09-23 12:05 | MHC.CM.PN ---
met maude salazar who states he lives with his parents at this [facility] he is active with [facility] has oiwn transportain home
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
--- NOTE | 2021-09-23 14:39 | MHC.CM.PN ---
Male 36 DX Syncope and PE. He is discharged today. [facility] will resume services; which were in place prior to this admission. The patient has arranged for transportation home.
--- NOTE | 2021-09-24 08:27 | MHC.CM.PN ---
CM received a call from [facility], requesting that dc summary be faxed to them [facility]. DC summary has successfully been faxed to [phone].
[2021-09-24 20:51] LABS: TS Negative Control Passed; TS Panel A 0; TS Panel B 1; TS Positive Control Passed; TSpotTB Negative (Negative)
[2021-09-26 23:26] LABS: EBV-NA IgG Index <18.00 U/mL; EBV-VCA IgG Ab <18.00 U/mL; EBV-VCA IgM Ab <36.00 U/mL
[2021-09-29 05:26] LABS: Angiotensin Converting Enzyme 44 U/L (9-67)
== END 2021-09-23 14:49 | disposition home health service (06) | DRG 134 ==
LOC: HO.ED 16:56 → HO.EDOVER 17:27 → HO.IMC 09-22 15:35
PROVIDERS: Hospitalist; Admitting Provider Family Medicine; Emergency Provider Emergency Medicine; PCP Internal Medicine; Visit Provider Family Medicine
DX: I26.99 Other pulmonary embolism without acute cor pulmonale (principal); R55 Syncope and collapse; R59.0 Localized enlarged lymph nodes; Z86.16 Personal history of COVID-19
CPT/HCPCS: 36415; 71275; 74177; 80048; 80076; 82164; 83615; 84484; 85025; 85027; 85379; 85610; 85730; 86308; 86481; 86664; 86665; 86769; 87389; 87635; 88184; 88185; 93005; 93306; 93971; 96365; 96366; 96375; 99219; 99285; Q9967

== ENCOUNTER 2021-09-26 15:02 | Emergency (ER) | payer MEDICAID, SELFPAY ==
--- NOTE | ~2021-09-26 | XR_ITS ---
EXAMINATION: XR CHEST CLINICAL INFORMATION: History difficulty breathing. COMPARISON: CTA of the chest dated from 09/21/2021. TECHNIQUE: PA view of the chest was obtained. FINDINGS: Normal appearance of the cardiomediastinal silhouette. Very mild bronchovascular prominence in the lower lungs. No focal airspace opacities, pleural effusions or pneumothorax. No acute osseous findings. XR/XR chest 1V IMPRESSION: Mild bronchovascular prominence in the lower lobes could be related with recently described subtle groundglass opacities possibly sequela viral pneumonia.
--- NOTE | 2021-09-26 16:00 | PC.NURSE ---
pt was called at 1520 & 1540 to triage without answer, pt just came to triage at 1600 asking if his name had been called. pt is now being triaged.
[2021-09-26 16:01] VITALS: BP 117/79; PULSE 96; RESP 18; TEMP 36.8; O2SAT 97; BMI 26.6
[2021-09-26 21:30] VITALS: BP 125/69; PULSE 91; RESP 20; O2SAT 97
--- NOTE | 2021-09-26 21:34 | PC.NURSE ---
pt a&o , no respiratory distress, pt complaining of lung and lower back pain, worsen when breathing in and laying down. O2 96% on room air. no cough. pt sitting up right in bed. pt able to speak in full sentence with no respiratory distress. Will continue to monitor.
--- NOTE | 2021-09-26 22:17 | ED.GENADULT ---
HPI - General Adult General Chief complaint: General Medical Stated complaint: diff breathing diagnosed on Sunday with pulm. emb Time Seen by Provider: 09/26/21 21:35 Source: patient and family (Mother) Mode of arrival: ambulatory History of Present Illness HPI narrative: 36-year-old male recently diagnosed with COVID-19 and subsequently found to have a DVT as well as PE comes in for shortness of breath and associated pain on deep inspiration without additional fevers, chills, change in color and states that his cough is actually improved. Related Data Previous Rx's Medication Instructions Recorded apixaban 5 mg (74 tabs) tablets in 5 mg PO BID #74 ea 09/23/21 a dose pack Allergies Allergy/AdvReac Type Severity Reaction Status Date / Time No Known Allergies Allergy Verified 09/26/21 16:01 Review of Systems Review of Systems: Pertinent positives and negatives as stated in HPI 10 point review of systems is otherwise negative. PMFSH Past Medical History Source: nursing notes reviewed Medical History History of COVID-19 Vasovagal episode Surgical History H/O hernia repair Social History Social History Household Members: Family Housing: House Do you presently have visiting nurse or other home services: Yes Patient Tobacco Use Status: Never used Tobacco Use of substances other than those prescribed or required for medical reasons: No Advance Directives: No Advance Directives Information Provided: No service: No Physical Exam Vital Signs: Vital Signs: Last Vital Signs Temp 98.2 F 09/26/21 16:01 Pulse 91 09/26/21 21:30 Resp 20 09/26/21 21:30 BP 125/69 09/26/21 21:30 Pulse Ox 97 09/26/21 21:30 Body Mass Index 26.6 VITAL SIGNS: Reviewed. GENERAL: Well developed, well nourished, in no acute distress. HEAD: Normocephalic/atraumatic EYES: PERRLA, EOMI OROPHARYNX: no oral lesions noted, posterior pharynx clear NECK: Supple, no adenopathy LUNGS: Normal breath sounds. No adventitious sounds or accessory muscle use. SpO2<97> RA CARDIOVASCULAR: Regular rate and rhythm without noted murmurs, no JVD or lower extremity edema. ABDOMEN: Soft, non-tender, non-distended with bowel sounds. NEUROLOGIC: Alert and oriented x 4. Course Course Course Narrative: 36-year-old male with history and clinical presentation consistent with COVID-19 syndrome, patient is hemodynamically stable with good oxygenation on room air and has been compliant with all medications. Patient and mother were reassured that this is unfortunately part of the recovery process and that he should continue to use the incentive spirometer as directed to help promote recovery. Patient otherwise discharged home in stable condition. Discharge Plan Discharge Clinical Impression: Pulmonary emboli, DVT (deep venous thrombosis), COVID-19 Patient Disposition: Home, Self-Care Instructions: Apixaban (By mouth), Deep Vein Thrombosis (ED) Additional Instructions: You must continue to quarantine. Recommend using a cool mist humidifier at bedside at night. Use a combination of lidocaine patch, Tylenol, heating pad for symptom relief and continue to use your incentive spirometer. Return to the ER for acute worsening of symptoms. Prescriptions: No Action apixaban 5 mg (74 tabs) tablets,dose pack 5 mg PO BID Qty: 74 RF: 2 Referrals: Natty Islas MD [Primary Care Provider] - 2 days
[2021-09-26 22:32] VITALS: BP 110/76; PULSE 80; RESP 20; O2SAT 97
== END 2021-09-26 22:35 | disposition home or self-care (01) ==
PROVIDERS: Emergency Provider Student in an Organized Health Care Education/Training Program; PCP Internal Medicine
DX: U07.1 COVID-19 (principal); I26.99 Other pulmonary embolism without acute cor pulmonale; I82.409 Acute embolism and thrombosis of unspecified deep veins of unspecified lower extremity
CPT/HCPCS: 71045; 99283; 99284

== ENCOUNTER → 2021-10-12 08:23 | Outpatient (BNVA) | payer MEDICAID, SELFPAY | PROVIDERS: PCP Internal Medicine; Visit Provider Hospitalist | DX: I26.99 Other pulmonary embolism without acute cor pulmonale (principal); R59.0 Localized enlarged lymph nodes; R55 Syncope and collapse; U09.9 Post COVID-19 condition, unspecified | CPT/HCPCS: 99212 ==

== ENCOUNTER 2021-11-10 10:37 | Outpatient (REF) | payer MEDICAID, SELFPAY ==
--- NOTE | ~2021-11-10 | US_ITS ---
EXAMINATION: US VENOUS ULTRASOUND WITH DOPPLER LOWER EXTREMITY, LEFT CLINICAL INFORMATION: Elevated d-dimer. Localized lymph nodes. COMPARISON: CT abdomen and pelvis 09/22/2021, left leg venous ultrasound with Doppler 09/21/2021. TECHNIQUE: Ultrasound of the deep veins is performed from the hip to the calf with compression sonography and color and pulse Doppler assessment. Spectral analysis with color-flow imaging is performed. FINDINGS: There is normal venous compression and respiratory variation and augmented flow. The visualized common femoral vein, superficial femoral vein, profunda femoral vein, popliteal vein, and the trifurcation region shows no evidence of deep venous thrombosis. No enlarged lymph nodes demonstrated. No popliteal fossa cyst. US/US venous duplex LE LT IMPRESSION: 1. No DVT demonstrated in the left lower extremity. 2. No lymphadenopathy visualized.
--- NOTE | ~2021-11-10 | CT_ITS ---
EXAMINATION: CT ANGIOGRAM OF THE CHEST WITH AND WITHOUT CONTRAST (CT PULMONARY ANGIOGRAM FOR PE) CLINICAL INFORMATION: Localized enlarged lymph nodes. Elevated d-dimer. Negative DVT exam of the left leg. COMPARISON: Chest x-ray dated 09/26/2021. CT pulmonary angiogram dated 09/21/2021. TECHNIQUE: Prior to contrast administration, noncontrast localization images were obtained. Subsequently, multidetector volumetric imaging was performed from the thoracic inlet to below the diaphragms following the administration of 65 mL Omnipaque 350 intravenous contrast. No contrast reaction reported Sagittal, coronal, and MIP oblique sagittal reformatted images were obtained on the CT workstation, uploaded to PACS, and reviewed. This CT examination was performed using dose optimization techniques as appropriate, variously including the following: *Automated exposure control *Adjustment of mA and/or kV according to patient size (this includes techniques or standardized protocols for targeted exams where dose is matched to indication/reason for exam; i.e. extremities or head) *Use of iterative reconstruction technique Total exam dose-length product 140 mGy-cm FINDINGS: QUALITY OF STUDY/CONTRAST BOLUS: Satisfactory. PULMONARY ARTERIES: No central or segmental pulmonary emboli. The previously seen subsegmental posterior medial right lower lobe and segmental/subsegmental left lower lobe pulmonary emboli are no longer visualized. THORACIC AORTA: No aneurysm or dissection. LUNG: Again seen are multiple centrilobular nodular opacities in the lungs, consistent with respiratory bronchiolitis. Superimposed scattered innumerable tiny 2 to 3 mm solid noncalcified pulmonary nodules and a few calcified pulmonary nodules are also seen, similar to the previous exam. No suspicious evolving pulmonary nodule or mass is noted. No focal consolidation. PLEURA: No pleural effusion or pneumothorax. MEDIASTINUM: Normal heart size. No pericardial effusion. Mildly enlarged 1 cm right lower paratracheal lymph node and precarinal lymph node again seen. There is also an enlarged 2 cm subcarinal lymph node and 1 cm left lower paratracheal lymph node. There is a 1.2 cm infrahilar left lymph node and 0.9 cm right hilar lymph nodes seen. These findings are similar to the previous exam. No evidence of septal bowing or right heart strain. CHEST WALL/AXILLA: No axillary or internal mammary lymphadenopathy. OSSEOUS STRUCTURES: No acute or suspicious osseous abnormality. UPPER ABDOMEN: Unremarkable. No reflux of contrast into the hepatic veins to suggest elevated right heart pressures. CT/CT angio chest PE protocol IMPRESSION: 1. No acute pulmonary emboli. As seen bilateral lower lobe pulmonary emboli have resolved. 2. No evidence of elevated right heart pressures. 3. Persistent bilateral hilar and mediastinal adenopathy, unchanged from prior study. Multiple associated noncalcified pulmonary nodules and a few scattered calcified pulmonary nodules are again seen, unchanged. Findings may be related to respiratory bronchiolitis and reactive adenopathy. Sarcoidosis was suggested previously though the distribution is not typical perilymphatic or peribronchial vascular. Close clinical correlation and follow-up is recommended. VTE: negative
[2021-11-10] MEDS: iohexoL 350 MG/ML 100 ML INFUS..BTL IV (14:13)
== END 2021-11-10 10:38 | disposition home or self-care (01) ==
LOC: HO.US 10:37
PROVIDERS: Visit Provider Hospitalist
DX: I26.99 Other pulmonary embolism without acute cor pulmonale (principal); R59.0 Localized enlarged lymph nodes
CPT/HCPCS: 71275; 93971; Q9967

== ENCOUNTER → 2021-11-25 13:55 | Outpatient (BNVA) | payer MEDICAID, SELFPAY | PROVIDERS: PCP Internal Medicine; Visit Provider Hospitalist | DX: R59.0 Localized enlarged lymph nodes (principal); Z79.01 Long term (current) use of anticoagulants | CPT/HCPCS: 99212 ==

== ENCOUNTER → 2021-12-27 13:21 | Outpatient (BNVA) | payer SELFPAY | PROVIDERS: PCP Internal Medicine; Visit Provider Physician Assistant Medical | DX: Z02.79 Encounter for issue of other medical certificate (principal) ==

== ENCOUNTER 2022-02-13 13:27 | Outpatient (REF) | payer MEDICAID, SELFPAY ==
--- NOTE | ~2022-02-13 | CT_ITS ---
EXAMINATION: CT CHEST WITHOUT CONTRAST CLINICAL INFORMATION: Localized enlarged lymph nodes. COMPARISON: CT chest 11/10/2021. TECHNIQUE: Multidetector volumetric CT imaging of the chest was done. Axial MIP volume rendering provided. Sagittal and coronal reformatted images were obtained. This CT examination was performed using dose optimization techniques as appropriate, variously including the following: *Automated exposure control *Adjustment of mA and/or kV according to patient size (this includes techniques or standardized protocols for targeted exams where dose is matched to indication/reason for exam; i.e. extremities or head) *Use of iterative reconstruction technique DLP: 210 mGy-cm FINDINGS: CLINICAL COUNSELOR: Well-inflated lungs appear unremarkable. LUNGS: The lungs are well expanded. There are numerous bilateral lung pulmonary nodules significant increase in number in both upper lobes, right lower lobe and right middle lobe. These nodules measure from subcentimeter to 3 mm in maximum size. No dense consolidation or mass seen. Minimal atelectatic changes right CP angle. MEDIASTINUM: The thyroid lobes are symmetrical and normal. The central trachea and bronchi are widely patent. There are abnormal pretracheal, para-aortic and hilar lymph nodes the size of the lymph nodes are stable since previous study. PLEURA: There is no pleural effusion. No pleural mass or thickening. AXILLA: There are multiple bilateral axillary lymph nodes measuring 7 mm and less. The chest wall is unremarkable. UPPER ABDOMEN: Visualized liver, spleen, pancreas and gallbladder appear unremarkable. Adrenal glands unremarkable as well. OSSEOUS STRUCTURES: No lytic or sclerotic process seen. There is mild degenerative disc changes T12-L1 disc level. CT/CT chest wo con IMPRESSION: Multiple bilateral pulmonary nodules most pronounced increased in numbers in both upper lobes right lower lobe and right middle lobe. Abnormal mediastinal hilar adenopathy with no change in size. There are numerous bilateral axillary lymph nodes. The above composite findings may represent sarcoidosis, lymphoma, pneumoconiosis or fungal etiology. Recommend further evaluation. Fleischner guidelines were followed.
== END 2022-02-13 13:28 | disposition home or self-care (01) ==
LOC: HO.CT 13:27
PROVIDERS: Visit Provider Hospitalist
DX: R59.0 Localized enlarged lymph nodes (principal); R91.8 Other nonspecific abnormal finding of lung field
CPT/HCPCS: 71250

== ENCOUNTER → 2022-03-27 09:58 | Outpatient (BNVA) | payer MEDICAID, SELFPAY | PROVIDERS: PCP Internal Medicine; Visit Provider Hospitalist | DX: I26.99 Other pulmonary embolism without acute cor pulmonale (principal); R59.0 Localized enlarged lymph nodes; R91.8 Other nonspecific abnormal finding of lung field | CPT/HCPCS: 99212 ==

== ENCOUNTER → 2022-05-10 10:07 | Outpatient (BNVA) | payer MEDICAID, SELFPAY | PROVIDERS: PCP Internal Medicine; Visit Provider Hospitalist | DX: R59.0 Localized enlarged lymph nodes (principal); I26.99 Other pulmonary embolism without acute cor pulmonale; R91.8 Other nonspecific abnormal finding of lung field | CPT/HCPCS: 99212 ==

== ENCOUNTER 2022-08-08 08:50 | Outpatient (REF) | payer MEDICAID, SELFPAY ==
--- NOTE | ~2022-08-08 | CT_ITS ---
EXAMINATION: CT CHEST WITHOUT CONTRAST CLINICAL INFORMATION: Enlarged lymph nodes COMPARISON: Previous chest CT most recent February 2022 TECHNIQUE: Multidetector volumetric CT imaging of the chest was done. Axial MIP volume rendering provided. Sagittal and coronal reformatted images were obtained. This CT examination was performed using dose optimization techniques as appropriate, variously including the following: *Automated exposure control *Adjustment of mA and/or kV according to patient size (this includes techniques or standardized protocols for targeted exams where dose is matched to indication/reason for exam; i.e. extremities or head) *Use of iterative reconstruction technique DLP: 184 mGy-cm FINDINGS: LUNGS: There are clustered calcified right lower lobe nodules, largest a 5 mm calcified right lower lobe nodule axial image 302 series 5. There are clustered noncalcified right lower lobe nodules, largest measuring 2 mm axial 302 series 5. The lungs are otherwise clear. There is a 2 mm calcified right upper lobe nodule and increased peribronchial attenuation axial image 313 series 5. The lungs are otherwise clear. The previously identified innumerable small pulmonary nodules on February 2022 exam are no longer seen. MEDIASTINUM: There is shotty mediastinal lymphadenopathy. Hilar adenopathy is difficult to evaluate without IV contrast. No enlarged hilar or mediastinal lymph nodes are seen lymphadenopathy. Lymphadenopathy is decreased from CTA September 2021. There is a thymic tissue appropriate for age. The heart does not appear enlarged. No pericardial effusion. Normal caliber thoracic aorta. Normal thyroid gland. Small lower cervical lymph nodes. CORONARY ARTERY CALCIFICATION: None visualized on this study. PLEURA: There is no pleural effusion. No pleural mass or thickening. AXILLA: Small bilateral axillary lymph nodes. No enlarged axillary lymph nodes seen. UPPER ABDOMEN: Unremarkable. OSSEOUS STRUCTURES: Unremarkable. CT/CT chest wo IV con IMPRESSION: Residual small clusters of calcified and noncalcified nodules in the right lower lobe. Otherwise the innumerable new pulmonary nodules on February 2022 exam are have resolved. Shotty mediastinal and hilar lymphadenopathy. No enlarged lymph nodes seen. Fleischner guidelines were followed.
== END 2022-08-08 08:51 | disposition home or self-care (01) ==
LOC: HO.CT 08:50
PROVIDERS: Visit Provider Hospitalist
DX: R59.0 Localized enlarged lymph nodes (principal)
CPT/HCPCS: 71250

== ENCOUNTER → 2022-09-06 09:15 | Outpatient (BNVA) | payer MEDICAID, SELFPAY | PROVIDERS: PCP Internal Medicine; Visit Provider Hospitalist | DX: R59.0 Localized enlarged lymph nodes (principal); I26.99 Other pulmonary embolism without acute cor pulmonale; R91.8 Other nonspecific abnormal finding of lung field | CPT/HCPCS: 99212 ==